=== PATIENT | female | born 1985 | race Asian ===

== ENCOUNTER 2017-11-12 21:56 | Emergency (ER) | payer BC ==
[2017-11-12 22:12] VITALS: BP 121/69
[2017-11-12] MEDS ORDERED: Acetaminophen TAB* 325 MG PO ONE ×2 (22:31→23:14)
[2017-11-12] MEDS ORDERED: Oseltamivir CAP* 75 MG CAP PO ONE (22:52)
--- NOTE | 2017-11-12 22:57 | UC ---
Gabino Dai Gabriel, scribed for Yanni Jolly MD on 11/12/17 at 2241 . HPI Febrile Illness - HPI Summary HPI Summary: This patient is a 32 year old F presenting to [facility] [place], [place] accompanied by her with a chief complaint of a general illness that began last night. The patient rates the pain 8/10 in severity. Patient reports fatigue, fever of 102.6, headache, chills, body aches, and productive cough. Pt also reports mild SOTO. The patient states she has needed increased bed rest and has a hard time getting up to even eat. 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 Pt's is also sick. Pt did not get flu vaccine. Pt took dayquil this am approx 7am - none since Patients medication reviewed during this visit. - History of Current Complaint Chief Complaint: UCRespiratory Time Seen by Provider: 11/12/17 22:03 Hx Obtained From: Patient Hx Last Menstrual Period: 10/17/17 Onset/Duration: Still Present Timing: Constant Initial Severity: Severe Current Severity: Severe Pain Intensity: 8 Pain Scale Used: 0-10 Numeric Aggravating Factors: Nothing Alleviating Factors: Nothing Associated Signs and Symptoms: Chills, Cough, Other: - fatigue, fever of 102.6, headache, chills, and productive cough - Allergy/Home Medications Allergies/Adverse Reactions: Allergies Allergy/AdvReac Type Severity Reaction Status Date / Time MED IN EPIDURAL Allergy Severe Itching Uncoded 11/12/17 22:12 Home Medications: Home Medications Dextromethorphan-Phenylephrine [Vicks Dayquil Cold & Flu] 1 cap PO ONCE PRN [History Confirmed 11/12/17] PMH/Surg Hx/FS Hx/Imm Hx Previously Healthy: Yes Other History Of: Negative For: HIV, Hepatitis B, Hepatitis C - Surgical History Surgical History: Yes Surgery Procedure, Year, and Place: , D&C AFTER MISCARRIAGE, TUBAL LIGATION - Family History Known Family History: Negative: Diabetes, Renal Disease, Respiratory Disease, Seizure Disorder - Social History Occupation: Employed Full-time Lives: With Family Alcohol Use: None Substance Use Type: None Smoking Status (MU): Never Smoked Tobacco - Immunization History Most Recent Influenza Vaccination: 07/25/16 Most Recent Tetanus Shot: 07/31/19 Most Recent Pneumonia Vaccination: N/A Review of Systems Constitutional: Fever, Chills, Fatigue Respiratory: Cough Neurological: Headache All Other Systems Reviewed And Are Negative: Yes Physical Exam Triage Information Reviewed: Yes Appearance: Other: - tired appearing, bundle, coughing Vital Signs: Initial Vital Signs Temp 103 F 11/12/17 22:06 Pulse 106 11/12/17 22:06 Resp 16 11/12/17 22:06 BP 121/69 11/12/17 22:06 Pulse Ox 100 11/12/17 22:06 Eye Exam: Normal Eyes: Positive: Conjunctiva Clear ENT: Positive: Other - TM x 2 clear, turbinates inflammed and boggy + PND no erythem mmpasty Neck exam: Normal Neck: Positive: Supple, Nontender, No Lymphadenopathy Respiratory Exam: Normal Respiratory: Positive: Chest non-tender, Lungs clear, Normal breath sounds, No respiratory distress, No accessory muscle use, Other: - no w/r + coarse cough intermittent speaking full sentences Cardiovascular Exam: Normal Cardiovascular: Positive: RRR, No Murmur, Pulses Normal Abdominal Exam: Normal Abdomen Description: Positive: Nontender, No Organomegaly, Soft Bowel Sounds: Positive: Present Musculoskeletal Exam: Normal Musculoskeletal: Positive: Strength Intact Neurological Exam: Normal Neurological: Positive: Alert Psychological Exam: Normal Psychological: Positive: Normal Response To Family Skin Exam: Normal Course/Dx - Course Course Of Treatment: Pt presents with body aches, fevers, chills, fatigye and cough starting suddenly last night. Pt with elevated temp. Suspect influenza. start tamiflu. d/w pt secretion precatuions. motrin/apap. hydrate. rest. masks given. pt's presents with similar sx. pt has 1yo - recommend d/ w registered travel nurse. return precautions. work note - Diagnoses Clinic Provider Diagnoses: influenza like illness Discharge - Discharge Plan Condition: Stable Disposition: HOME Prescriptions: Oseltamivir CAP* [Tamiflu CAP*] 75 mg PO BID #9 cap Patient Education Materials: Influenza (ED) Forms: *Work Release Referrals: Wayne Moreira MD [Primary Care Provider] - Additional Instructions: -These infections are spread by oral secretions. Do not share eating or drinking utensils. Frequent hand washing is important. Clean items that may get your secretions on them such as cell phones, ipads, computer mouse, television remotes. Once you start to feel better, change your toothbrush and your pillowcase - Take tamiflu as prescribed until gone - Alternate ibuprofen (Advil, Motrin) 600mg and tylenol 1000mg every 3hours for pain. Take with food. do NOT take for more than 4-5 days - Okay to take over the counter decongestant - stay well hydrate. Drink plenty of non-alcoholic, non-caffinated beverage - humidify the air in the room where you sleep - contact your doctor to schedule a follow-up appointment. Contact your doctor or go to the emergency department with questions or concerns The documentation as recorded by the Gabino robison Gabriel accurately reflects the service I personally performed and the decisions made by me, Yanni Jolly MD.
== END 2017-11-12 22:15 | disposition home or self-care (01) ==
LOC: UCEAST 21:56
DX: J11.1 Influenza due to unidentified influenza virus with other respiratory manifestations (principal)
CPT/HCPCS: 99213; A9270-GY; G0463

== ENCOUNTER 2018-07-04 16:55 | Emergency (ER) | payer BC ==
[2018-07-04 17:06] VITALS: BP 108/73
--- NOTE | 2018-07-04 17:29 | UC ---
Throat Pain/Nasal Hu HPI - HPI Summary HPI Summary: This patient is a 33 year old F presenting to [facility] with a chief complaint of sore throat since 06/29/18. The patient rates the pain 5/10 in severity. Symptoms aggravated by nothing. Symptoms alleviated by nothing. Patient reports CP radiating to the back secondary to a cough. Patient denies fever, chills, and myalgia. - History of Current Complaint Chief Complaint: UCGeneralIllness Stated Complaint: SORE THROAT Time Seen by Provider: 07/04/18 16:58 Hx Obtained From: Patient Hx Last Menstrual Period: [id number] Onset/Duration: Sudden Onset, Lasting Days - since 06/29/18, Still Present Severity: Moderate Pain Intensity: 5 Pain Scale Used: 0-10 Numeric Associated Signs & Symptoms: Positive: Other - Patient reports CP radiating to the back secondary to a cough. Patient denies fever, chills, and myalgia. - Allergies/Home Medications Allergies/Adverse Reactions: Allergies Allergy/AdvReac Type Severity Reaction Status Date / Time MED IN EPIDURAL Allergy Severe Itching Uncoded 07/04/18 17:07 PMH/Surg Hx/FS Hx/Imm Hx Endocrine History: Other Other Endocrine History: No DM Cardiovascular History: Other Other Cardiovascular History: No HTN, CAD Other History Of: Negative For: HIV, Hepatitis B, Hepatitis C - Surgical History Surgical History: Yes Surgery Procedure, Year, and Place: , D&C AFTER MISCARRIAGE, TUBAL LIGATION - Family History Known Family History: Negative: Diabetes, Renal Disease, Respiratory Disease, Seizure Disorder - Social History Alcohol Use: None Substance Use Type: None Smoking Status (MU): Never Smoked Tobacco - Immunization History Most Recent Influenza Vaccination: 07/25/16 Most Recent Tetanus Shot: 07/31/19 Most Recent Pneumonia Vaccination: N/A Review of Systems Constitutional: Other - denies fever, chills ENT: Sore Throat Respiratory: Cough Cardiovascular: Chest Pain - CP radiating to the back secondary to a cough Musculoskeletal: Other: - denies myalgia All Other Systems Reviewed And Are Negative: Yes Physical Exam - Summary Physical Exam Summary: VITAL SIGNS: Reviewed. GENERAL: Patient is a well-developed and nourished FEMALE who is lying comfortable in the stretcher. Patient is not in any acute respiratory distress. HEAD AND FACE: Normocephalic EYES: PERRLA, EOMI x 2. EARS: Hearing grossly intact. MOUTH: Oropharynx within normal limits. NECK: Supple, trachea is midline, no adenopathy, no JVD, no carotid bruit. CHEST: Symmetric, no tenderness at palpation LUNGS: Clear to auscultation bilaterally. No wheezing or crackles. CVS: Regular rate and rhythm, S1 and S2 present, no murmurs or gallops appreciated. ABDOMEN: Soft, non-tender. Bowel sounds are normal. No abdominal abnormal pulsations. EXTREMITIES: Full ROM in all major joints, no edema, no cyanosis or clubbing. NEURO: Alert and oriented x 3. No acute neurological deficits. Speech is normal and follows commands. SKIN: Dry and warm Triage Information Reviewed: Yes Vital Signs: Initial Vital Signs Temp 98.1 F 07/04/18 17:01 Pulse 74 07/04/18 17:01 Resp 16 07/04/18 17:01 BP 108/73 07/04/18 17:01 Pulse Ox 99 07/04/18 17:01 Vital Signs Reviewed: Yes Throat Pain/Nasal Course/Dx - Course Course Of Treatment: Patient is a 33-year-old female who presents to the urgent care with chief complaint of dry cough and sore throat.. She denies any fever or chills, denies any chest pain or palpitations. Rapid strep is negative. I believe that the patient has an upper respiratory tract infection. Patient will be discharged home with follow-up with PCP. - Differential Dx/Diagnosis Provider Diagnoses: Upper respiratory infection Discharge - Sign-Out/Discharge Documenting (check all that apply): Patient Departure - discharged All imaging exams completed and their final reports reviewed: No Studies - Discharge Plan Condition: Stable Disposition: HOME Prescriptions: D-Methorphan/PE/Acetaminophen [Vicks Dayquil Liquicaps] 1 cap PO ONCE PRN #12 capsule PRN Reason: Congestion Patient Education Materials: Upper Respiratory Infection (ED) Referrals: Wayne Moreira MD [Primary Care Provider] - Additional Instructions: Take medications as instructed and adhere to plan Take Acetaminophen or ibuprofen for pain or fever Increase your fluid intake Return to the or go to the emergency department if symptoms worsen Follow-up with primary care physician in next 2-3 days - Billing Disposition and Condition Condition: STABLE Disposition: Home - Attestation Statements Document Initiated by Scribe: Yes Documenting Scribe: Baltazar Minaya Provider For Whom Scribe is Documenting (Include Credential): Ta Calero MD Scribe Attestation: I, Baltazar Minaya, scribed for Ta Calero MD on 07/04/18 at 1752. Scribe Documentation Reviewed: Yes Provider Attestation: The documentation as recorded by the Baltazar robison accurately reflects the service I personally performed and the decisions made by me, Ta Calero MD
== END 2018-07-04 17:40 | disposition home or self-care (01) ==
LOC: UCEAST 16:55
DX: J06.9 Acute upper respiratory infection, unspecified (principal)
CPT/HCPCS: 87651; 99212; G0463

== ENCOUNTER 2018-09-12 13:22 | Emergency (ER) | payer BC ==
[2018-09-12 13:46] VITALS: BP 112/79
--- NOTE | 2018-09-12 14:23 | UC ---
Eye Complaint HPI - HPI Summary HPI Summary: 33 y/o female presents to the urgent care c/o RT upper eye lid red and swollen w/ mild pain at touch since yesterday. pt reports this morning she woke up w/ mild yellowish discharge. pain at touch is 4/10. Pt denies fever, SOTO, dizziness , photophobia, visual disturbance, URI, SOB, chest pain, abdominal pain, N/v/D. - History of Current Complaint Chief Complaint: UCEye Stated Complaint: R EYE COMPLAINT Time Seen by Provider: 09/12/18 14:05 Hx Obtained From: Patient Hx Last Menstrual Period: [id number] ?: No Onset/Duration: Gradual Onset, Lasting Days - 1 day, Still Present, Worse Since - today Timing: Constant Severity Initially: Mild Severity Currently: Mild Pain Intensity: 4 Pain Scale Used: 0-10 Numeric Location of Injury: Eye Lid (upper) - RT Character: Foreign Body Sensation Aggravating Factor(s): Blinking Alleviating Factor(s): Nothing Associated Signs And Symptoms: Positive: Drainage (Purulent) - this morning, Swelling - mild RT uper eye lid. Negative: Photophobia, Vision Impairment Bilateral, Vision Impairment Right, Vision Impairment Left, Fever - Risk Factors Penetrating Injury Risk Factor: Negative Globe Rupture Risk Factors: Negative Acute Glaucoma Risk Factors: Negative Optic Artery Occlusion Risk Factors: Negative - Allergies/Home Medications Allergies/Adverse Reactions: Allergies Allergy/AdvReac Type Severity Reaction Status Date / Time MED IN EPIDURAL Allergy Severe Itching Uncoded 09/12/18 13:46 PMH/Surg Hx/FS Hx/Imm Hx Previously Healthy: Yes Other Endocrine History: Gestational DM Other History Of: Negative For: HIV, Hepatitis B, Hepatitis C - Surgical History Surgical History: Yes Surgery Procedure, Year, and Place: , D&C AFTER MISCARRIAGE, TUBAL LIGATION - Family History Known Family History: Positive: Non-Contributory Negative: Diabetes, Renal Disease, Respiratory Disease, Seizure Disorder - Social History Occupation: Employed Full-time Lives: With Family Alcohol Use: None Substance Use Type: None Smoking Status (MU): Never Smoked Tobacco - Immunization History Most Recent Influenza Vaccination: 07/25/16 Most Recent Tetanus Shot: 07/31/19 Most Recent Pneumonia Vaccination: N/A Review of Systems All Other Systems Reviewed And Are Negative: Yes Constitutional: Positive: Negative Skin: Positive: Negative Eyes: Positive: Drainage - yellowish, Eye Redness - RT upper eyelid. Negative: Blurred Vision, Diplopia, Photophobia ENT: Positive: Negative Respiratory: Positive: Negative Cardiovascular: Positive: Negative Gastrointestinal: Positive: Negative Genitourinary: Positive: Negative Motor: Positive: Negative Neurovascular: Positive: Negative Musculoskeletal: Positive: Negative Neurological: Positive: Negative Psychological: Positive: Negative Is Patient Immunocompromised?: No Physical Exam - Summary Physical Exam Summary: Vital Signs Reviewed: Yes General: Well appearing, well nourished female in no apparent pain distress Eyes: Positive: Conjunctiva Inflamed - Visual acuity: WNL,Visual sears: full to confrontation.mild periorbital soft tissue swelling at the RT upper eyelid with erythema and white small pustule in the medial side of eyelid, tender to palpation. PERRLA, EOMI intact w/out limitation or complaint of pain. eyelashes clear. mild tearing and yellowish drainage observed. No ciliary flush. No chemosis, No photophobia. Normal fundoscopic exam; no proptosis, exophthalmos, nystagmus. ENT: Positive: Normal ENT inspection, Hearing grossly normal, Pharynx normal, Nasal congestion, Nasal drainage - clear, TMs normal - B/L external ear canal clear , TM's WNL. Negative: Tonsillar swelling, Tonsillar exudate Neck: Positive: Supple, Nontender, No Lymphadenopathy Respiratory: Positive: Chest nontender, Lungs clear, Normal breath sounds, No respiratory distress Cardiovascular: Positive: RRR, No Murmur, Pulses Normal, Brisk Capillary Refill Abdomen Description: Positive: Nontender, No Organomegaly, Soft. Negative: CVA Tenderness (R), CVA Tenderness (L) Bowel Sounds: Positive: Present Musculoskeletal: Positive: Strength Intact, ROM Intact, No Edema Neurological Exam: Normal Psychological Exam: Normal Skin Exam: Normal Triage Information Reviewed: Yes Vital Signs: Initial Vital Signs Temp 98.5 F 09/12/18 13:37 Pulse 84 09/12/18 13:37 Resp 18 09/12/18 13:37 BP 112/79 09/12/18 13:37 Pulse Ox 100 09/12/18 13:37 Eye Complaint Course/Dx - Course Course Of Treatment: 33 y/o female presents to the urgent care c/o RT upper eye lid red and swollen w/ mild pain at touch since yesterday. pt reports this morning she woke up w/ mild yellowish discharge. pain at touch is 4/10. Pt denies fever, SOTO, dizziness, photophobia, visual disturbance, URI, SOB, chest pain, abdominal pain, N/v/D.Hx obtained. Pt with a RT upper eyelid internal hordeolum on examination. Pt Rx Bacitracin Ophthalmic Ointment. Pt advised to apply warm compresses and massage the eye with gentle pressure 4-5 times for 10 -15min throughout the day. Then apply ABX and if not improvement of symptoms to f/u with slitting and shipping supervisor Dr Barriga for further evaluation and treatment. Pt understood and agreed with plan of care. - Differential Dx/Diagnosis Differential Diagnosis/HQI/PQRI: Conjunctivitis, Periorbital Cellulitis, Orbital Cellulitis, Other - stye Provider Diagnosis: Hordeolum of right upper eyelid Discharge - Sign-Out/Discharge Documenting (check all that apply): Patient Departure - d/c home All imaging exams completed and their final reports reviewed: No Studies - Discharge Plan Condition: Stable Disposition: HOME Prescriptions: Erythromycin TOPICAL GEL* [Erythromycin OPTH OINT*] 1 applic TOPICAL TID #1 oint Patient Education Materials: Hunter (ED) Referrals: Wayne Moreira MD [Primary Care Provider] - 3 Days Wayne Barriga MD [Medical Doctor] - If Needed Additional Instructions: 1-Please apply ophthalmic ointment in your RT eye as directed. Please apply warm compresses and massage the eye with gentle pressure 4-5 times for 10-15min throughout the day 2- If you do not improve or if symptoms worsen please f/u with slitting and shipping supervisor Dr Stratton further evaluation and treatment - Billing Disposition and Condition Condition: STABLE Disposition: Home - Attestation Statements Provider Attestation: I was available for consult. This patient was seen by the FELICIANO. The patient was not presented to, seen by, or examined by me. -Jarocho
== END 2018-09-12 14:25 | disposition home or self-care (01) ==
LOC: UCEAST 13:22
DX: H00.011 Hordeolum externum right upper eyelid (principal); Z88.5 Allergy status to narcotic agent
CPT/HCPCS: 99212; G0463

== ENCOUNTER 2019-11-03 16:21 | Emergency (ER) | payer BC ==
--- NOTE | 2019-11-03 17:56 | UC ---
Respiratory Complaint HPI - HPI Summary HPI Summary: The patient is a 34-year-old female with the acute onset of fever chills cough and sore throat that started last night. She denies any chest pain or shortness of breath. She feels markedly fatigued. She has no history of asthma. - History of Current Complaint Chief Complaint: UCGeneralIllness Stated Complaint: COUGH Time Seen by Provider: 11/03/19 17:51 Hx Obtained From: Patient Hx Last Menstrual Period: two weeks ago Onset/Duration: Sudden Onset, Lasting Hours Severity Initially: Moderate Severity Currently: Moderate Pain Intensity: 6 Pain Scale Used: 0-10 Numeric Character: Cough: Nonproductive Aggravating Factors: Nothing Alleviating Factors: Nothing Associated Signs And Symptoms: Positive: Fever, Chills, Nasal Congestion - Allergies/Home Medications Allergies/Adverse Reactions: Allergies Allergy/AdvReac Type Severity Reaction Status Date / Time MED IN EPIDURAL Allergy Severe Itching Uncoded 11/03/19 16:31 Home Medications: Home Medications Acetaminophen [Masophen] 1,000 mg PO ONCE PRN 11/03/19 [History Confirmed ] PMH/Surg Hx/FS Hx/Imm Hx Previously Healthy: Yes Other History Of: Negative For: HIV, Hepatitis B, Hepatitis C - Surgical History Surgical History: Yes Surgery Procedure, Year, and Place: , D&C AFTER MISCARRIAGE, TUBAL LIGATION - Family History Known Family History: Positive: Non-Contributory Negative: Diabetes, Renal Disease, Respiratory Disease, Seizure Disorder - Social History Alcohol Use: None Substance Use Type: None Smoking Status (MU): Never Smoked Tobacco - Immunization History Most Recent Influenza Vaccination: 07/25/16 Most Recent Tetanus Shot: 07/31/19 Most Recent Pneumonia Vaccination: N/A Review of Systems All Other Systems Reviewed And Are Negative: Yes Constitutional: Positive: Fever, Chills, Fatigue Skin: Positive: Negative Eyes: Positive: Negative ENT: Positive: Sore Throat, Nasal Discharge Respiratory: Positive: Cough Cardiovascular: Positive: Negative Gastrointestinal: Positive: Negative Genitourinary: Positive: Negative Motor: Positive: Negative Neurovascular: Positive: Negative Musculoskeletal: Positive: Negative Neurological: Positive: Headache Psychological: Positive: Negative Physical Exam Triage Information Reviewed: Yes Appearance: Well-Appearing, No Pain Distress, Well-Nourished Vital Signs: Initial Vital Signs Temp 99.2 F 11/03/19 16:26 Pulse 106 11/03/19 16:26 Resp 18 11/03/19 16:26 BP 117/76 11/03/19 16:26 Pulse Ox 97 11/03/19 16:26 Vital Signs Reviewed: Yes Eyes: Positive: Conjunctiva Clear ENT: Positive: Hearing grossly normal, Pharyngeal erythema, Nasal congestion, Nasal drainage, Uvula midline. Negative: Tonsillar swelling, Tonsillar exudate , Trismus, Muffled voice, Hoarse voice Dental Exam: Normal Neck: Positive: Supple, Nontender, No Lymphadenopathy Respiratory: Positive: Lungs clear, Normal breath sounds, No respiratory distress, No accessory muscle use Cardiovascular: Positive: RRR, No Murmur, Tachycardia Musculoskeletal: Positive: ROM Intact, No Edema Neurological Exam: Normal Neurological: Positive: Alert Psychological Exam: Normal Skin Exam: Normal Diagnostics - Laboratory Lab Results: strep + influenza B+ Respiratory Course/Dx - Differential Dx/Diagnosis Provider Diagnosis: Influenza B, Strep throat Discharge ED - Sign-Out/Discharge Documenting (check all that apply): Patient Departure All imaging exams completed and their final reports reviewed: No Studies - Discharge Plan Condition: Stable Disposition: HOME Prescriptions: Ibuprofen TAB* [Motrin TAB*] 600 mg PO Q6H PRN #40 tab PRN Reason: Pain Oseltamivir CAP* [Tamiflu CAP*] 75 mg PO BID #10 cap Penicillin VK 500 MG TAB(NF) [Penicillin VK 500 mg Tab] 500 mg PO TID #30 tab Patient Education Materials: Influenza (ED), Strep Throat (ED) Referrals: Wayne Moreira MD [Primary Care Provider] - 6 Days (if not better) Additional Instructions: rest fluids - Billing Disposition and Condition Condition: STABLE Disposition: Home
[2019-11-03] MEDS ORDERED: Ibuprofen TAB* 600 MG PO ONE (18:45)
[2019-11-03 18:53] LABS: Influenza B Molecular POSITIVE (Negative)
[2019-11-03 19:31] VITALS: BP 115/76
== END 2019-11-03 19:20 | disposition home or self-care (01) ==
LOC: UCEAST 16:21
DX: J10.1 Influenza due to other identified influenza virus with other respiratory manifestations (principal); J02.0 Streptococcal pharyngitis; Z88.9 Allergy status to unspecified drugs, medicaments and biological substances
CPT/HCPCS: 87651; 99212; A9270-GY; G0463